=== PATIENT | female | born 1995 | race African-American/Black ===

== ENCOUNTER 2016-06-28 16:23 | Emergency (ER) | payer OTHER ==
[2016-06-28 16:53] VITALS: BP 128/74; PULSE 81; RESP 16; TEMP 99.7
--- NOTE | 2016-06-28 18:04 | ED ---
Skin/Abscess/FB HPI - General Chief complaint: Skin/Abscess/Foreign Body Stated complaint: Spider Bite Time Seen by Provider: 06/28/16 17:43 Source: patient, RN notes reviewed Mode of arrival: ambulatory Limitations: no limitations - History of Present Illness Initial comments: Patient is a 20-year-old female presents to the emergency room for evaluation. Patient states she thinks she has a spider bite under her right breast area. Patient states she killed the spider 2 days ago and noticed a small spider bite on her right breast today. Patient states she has been having increasing pain. Patient denies fevers or chills. Patient also states that she has a small lump in the posterior portion of her scalp on the right side. Patient states that causes pain to press over the area. Patient denies any drainage from the area. Patient denies history of abscesses or history of MRSA. Patient states that she is up to date on all of her immunizations. Patient denies any redness or streaking from the site under her breast. - Related Data Previous Rx's Medication Instructions Recorded Mupirocin 2% Oint [Bactroban 2% 1 applic TOPICAL TID 10 Days 06/28/16 Oint] Sulfamethox-Tmp 800-160Mg [Bactrim 2 each PO Q12HR #56 tab 06/28/16 Ds] Allergies Allergy/AdvReac Type Severity Reaction Status Date / Time No Known Allergies Allergy Verified 06/28/16 16:53 Review of Systems ROS Statement: Those systems with pertinent positive or pertinent negative responses have been documented in the HPI. ROS Other: All systems not noted in ROS Statement are negative. Past Medical History Past Medical History: Asthma History of Any Multi-Drug Resistant Organisms: None Reported Past Surgical History: No Surgical Hx Reported Past Psychological History: No Psychological Hx Reported Smoking Status: Current every day smoker Past Alcohol Use History: None Reported Past Drug Use History: None Reported General Exam - General Exam Comments Initial Comments: sitting in exam room, no acute distress. Limitations: no limitations General appearance: alert, in no apparent distress Head exam: Present: atraumatic, normocephalic, normal inspection Eye exam: Present: normal appearance ENT exam: Present: normal exam Neck exam: Present: normal inspection Respiratory exam: Present: normal lung sounds bilaterally. Absent: respiratory distress Cardiovascular Exam: Present: regular rate, normal rhythm, normal heart sounds Extremities exam: Present: normal inspection Back exam: Present: normal inspection Neurological exam: Present: alert, oriented X3, CN II-XII intact, normal gait Psychiatric exam: Present: normal affect, normal mood Skin exam: Present: other (small erythematous lesion under her right breast, mild surrounding erythema. No streaking noted. Pea size abscess noted on the base of the skull on the right side.) Course Vital Signs 06/28/16 16:49 Temperature 99.7 F H Pulse Rate 81 Respiratory 16 Rate Blood Pressure 128/74 O2 Sat by Pulse 100 Oximetry Procedures - Incision & Drainage Consent Obtained: verbal consent Site: scalp Needle Aspiration Performed?: Yes I&D Drainage Obtained: Pus Culture Obtained?: Yes Patient Tolerated Procedure: well, no complications Medical Decision Making - Medical Decision Making patient is a 20-year-old female presents emergency room for evaluation of possible insect bite under her right breast and abscess over her scalp. Scalp abscess was incised. Culture pending. No streaking or major surrounding erythema around insect bite. Patient was placed on double strength Bactrim advised to return for worsening symptoms. Patient states she understands her diagnosis discussed with her. Case discussed with Dr. Brown. Disposition Clinical Impression: Insect bite, Scalp abscess Disposition: HOME SELF-CARE Condition: Good Instructions: Insect Bite or Sting (ED), Abscess Incision and Drainage (ED), Abscess (ED) Additional Instructions: Take antibiotics as directed. Apply mupirocin ointment as directed. Keep area' s clean with antibacterial soap and water. Take Tylenol or Motrin as needed for pain. Please follow-up with primary care provider in 24-48 hours for reevaluation. If any new symptom arises or symptoms worsen, return to ER as soon as possible. Prescriptions: Sulfamethox-Tmp 800-160Mg [Bactrim Ds] 2 each PO Q12HR #56 tab Mupirocin 2% Oint [Bactroban 2% Oint] 1 applic TOPICAL TID 10 Days Referrals: Nonstaff,Physician [Primary Care Provider] - 1-2 days Time of Disposition: 18:05
== END 2016-06-28 18:20 | disposition home or self-care (01) ==
LOC: EC 16:23
DX: L02.811 Cutaneous abscess of head [any part, except face] (principal); L53.9 Erythematous condition, unspecified; F17.200 Nicotine dependence, unspecified, uncomplicated
CPT/HCPCS: 10160; 87070; 87077; 87186; 87205; 99283

== ENCOUNTER 2016-07-01 18:31 | Emergency (ER) | payer SELFPAY ==
[2016-07-01] MEDS ORDERED: ACETAMINOPHEN TAB 500 MG TAB PO STA (19:52)
[2016-07-01] MEDS ORDERED: SODIUM CHLORIDE 0.9% 1,000 ML IV ONE (19:52)
[2016-07-01] MEDS ORDERED: IBUPROFEN 800 MG TAB PO STA (19:52)
[2016-07-01 20:29] VITALS: RESP 18
[2016-07-01 20:40] LABS: Basophils % (A) 0 %; CHCM 32.5; Eosinophils # (A) 0.3 k/uL (0-0.7); Eosinophils % (A) 2 %; HCT 42.8 % (34.0-46.0); HDW 2.36; HGB 14.1 gm/dL (11.4-16.0); Luc # (Auto) 0.23; Luc % (Auto) 2; Lymphocytes % (A) 14 %; MCH 27.4 pg (25.0-35.0); MCHC 32.9 g/dL (31.0-37.0); MCV 83.5 fL (80.0-100.0); Mean Platelet Volume 7.2; Monocytes # (A) 0.7 k/uL (0-1.0); Monocytes % (A) 5 %; Neutrophils % (A) 77 %; RBC 5.13 m/uL (3.80-5.40); RDW 13.3 % (11.5-15.5); WBC 14.2 k/uL (4.0-11.0); WBC (Perox) 13.72
[2016-07-01 20:50] LABS: ALT 23 U/L (9-52); AST 21 U/L (14-36); Alkaline Phosphatase 115 U/L (38-126); Anion Gap 14 mmol/L; Blood Urea Nitrogen 9 mg/dL (7-17); Calcium 10.1 mg/dL (8.4-10.2); Carbon Dioxide 21 mmol/L (22-30); Chloride 104 mmol/L (98-107); Glucose 94 mg/dL (74-99); Non-African American GFR(MDRD) >60 (>60 ml/min/1.73 sqM); Potassium 3.2 mmol/L (3.5-5.1); Sodium 139 mmol/L (137-145); Total Bilirubin 0.5 mg/dL (0.2-1.3); Total Protein 7.9 g/dL (6.3-8.2)
--- NOTE | 2016-07-01 20:59 | ED ---
Skin/Abscess/FB HPI - General Chief complaint: Skin/Abscess/Foreign Body Stated complaint: Neck Wound Time Seen by Provider: 07/01/16 19:51 Source: patient, RN notes reviewed, old records reviewed Mode of arrival: ambulatory Limitations: no limitations - History of Present Illness Initial comments: This is a 20-year-old female for a reevaluation after she had a abscess drained from the right posterior neck. Patient reports that she was seen and a culture was obtained. She reports that she's been placed on Biaxin taking them regularly. She rests emergency department today with a fever. Denies any recent Motrin or Tylenol use. Patient states that it is not getting any better and has continued to spread. Patient also reports that she has a abscess underneath the right breast. She reports that that was healing well. Patient denies a safety a past medical history. - Related Data Home Medications Medication Instructions Recorded Confirmed Ibuprofen 200 - 400 mg PO Q6H PRN 07/01/16 07/01/16 Sulfamethox-Tmp 800-160Mg [Bactrim 2 tab PO Q12HR 07/01/16 07/01/16 Ds] Previous Rx's Medication Instructions Recorded Mupirocin 2% Oint [Bactroban 2% 1 applic TOPICAL TID 10 Days 06/28/16 Oint] Allergies Allergy/AdvReac Type Severity Reaction Status Date / Time No Known Allergies Allergy Verified 07/01/16 20:14 Review of Systems ROS Statement: Those systems with pertinent positive or pertinent negative responses have been documented in the HPI. ROS Other: All systems not noted in ROS Statement are negative. Past Medical History Past Medical History: Asthma History of Any Multi-Drug Resistant Organisms: None Reported Past Surgical History: No Surgical Hx Reported Past Psychological History: No Psychological Hx Reported Smoking Status: Current every day smoker Past Alcohol Use History: None Reported Past Drug Use History: None Reported General Exam - General Exam Comments Initial Comments: Physical 20-year-old female. No acute distress. Limitations: no limitations General appearance: alert, in no apparent distress Head exam: Present: atraumatic, normocephalic, normal inspection, other ( Patient has evidence of a firm abscess/cyst over the right posterior neck into the scalp.) Eye exam: Present: normal appearance, PERRL, EOMI. Absent: scleral icterus, conjunctival injection, periorbital swelling ENT exam: Present: normal exam, mucous membranes moist Neck exam: Present: normal inspection. Absent: tenderness, meningismus, lymphadenopathy Respiratory exam: Present: normal lung sounds bilaterally. Absent: respiratory distress, wheezes, rales, rhonchi, stridor Cardiovascular Exam: Present: regular rate, normal rhythm, normal heart sounds. Absent: systolic murmur, diastolic murmur, rubs, gallop, clicks GI/Abdominal exam: Present: soft, normal bowel sounds. Absent: distended, tenderness, guarding, rebound, rigid Extremities exam: Present: normal inspection, full ROM, normal capillary refill. Absent: tenderness, pedal edema, joint swelling, calf tenderness Back exam: Present: normal inspection Neurological exam: Present: alert, oriented X3, CN II-XII intact Psychiatric exam: Present: normal affect, normal mood Skin exam: Present: warm, dry, intact, normal color. Absent: rash Course Vital Signs 07/01/16 07/01/16 07/01/16 18:34 20:29 21:55 Temperature 100.1 F H 98.9 F Pulse Rate 98 78 76 Respiratory 20 18 18 Rate Blood Pressure 158/77 123/63 111/80 O2 Sat by Pulse 98 97 98 Oximetry 07/01/16 22:57 Temperature 98.7 F Pulse Rate 69 Respiratory 18 Rate Blood Pressure 120/80 O2 Sat by Pulse 98 Oximetry Procedures - Incision & Drainage Consent Obtained: verbal consent Indication: abscess Site: scalp Size (cm): 5 Anesthetic Used: benzocaine 0.25% Amount (mLs): 3 I&D Cleaning Method: Betadine Sterile Field Used?: Yes Scalpel Used: #11 I&D Drainage Obtained: Pus, Blood Culture Obtained?: Yes Patient Tolerated Procedure: well, no complications Medical Decision Making - Medical Decision Making This is a 20-year-old female for a reevaluation after she had a abscess drained from the right posterior neck. Patient reports that she was seen and a culture was obtained. She reports that she's been placed on Bactrim taking them regularly. She rests emergency department today with a fever. Denies any recent Motrin or Tylenol use. Patient states that it is not getting any better and has continued to spread. Patient also reports that she has a abscess underneath the right breast. She reports that that was healing well. Patient denies a safety a past medical history. Patient received IV fluids and lab work obtained. Evidence of leukocytosis of 14.0. Ultrasound of the area was obtained and reveals a large mass of the area. No significant area for fluid drainage. Discussed this case with Dr. Dhillon. He was able to squeeze a significant amount of pus from the area. I went back and incised and drained the area and significant amount of pus and fluid came out. Patient reports significant relief of the pain afterward. Given the likely remove most of the abscess will continue to have the patient treated outpatient only with double strength Bactrim. Discussed close follow-up with a primary care provider after 2 days more of the antibiotic. Discussed that patient may need to return if the area continues to grow and does not start to heal properly. Patient agrees to treatment plan will comply. Return parameters were discussed. - Lab Data Result diagrams: 07/01/16 20:20 07/01/16 20:20 Lab Results 07/01/16 07/01/16 07/01/16 Range/Units 20:20 20:20 20:20 WBC 14.2 H (4.0-11.0) k/uL RBC 5.13 (3.80-5.40) m/uL Hgb 14.1 (11.4-16.0) gm/dL Hct 42.8 (34.0-46.0) % MCV 83.5 (80.0-100.0) fL MCH 27.4 (25.0-35.0) pg MCHC 32.9 (31.0-37.0) g/dL RDW 13.3 (11.5-15.5) % Plt Count 316 (150-450) k/uL Neutrophils % 77 % Lymphocytes % 14 % Monocytes % 5 % Eosinophils % 2 % Basophils % 0 % Neutrophils # 11.0 H (1.3-7.7) k/uL Lymphocytes # 2.0 (1.0-4.8) k/uL Monocytes # 0.7 (0-1.0) k/uL Eosinophils # 0.3 (0-0.7) k/uL Basophils # 0.0 (0-0.2) k/uL Sodium 139 (137-145) mmol/L Potassium 3.2 L (3.5-5.1) mmol/L Chloride 104 (98-107) mmol/L Carbon Dioxide 21 L (22-30) mmol/L Anion Gap 14 mmol/L BUN 9 (7-17) mg/dL Creatinine 1.04 (0.52-1.04) mg/dL Est GFR (MDRD) Af Amer >60 (>60 ml/min/1.73 sqM) Est GFR (MDRD) Non-Af >60 (>60 ml/min/1.73 sqM) Glucose 94 (74-99) mg/dL Plasma Lactic Acid Rhett 1.4 (0.7-2.0) mmol/L Calcium 10.1 (8.4-10.2) mg/dL Total Bilirubin 0.5 (0.2-1.3) mg/dL AST 21 (14-36) U/L ALT 23 (9-52) U/L Alkaline Phosphatase 115 (38-126) U/L Total Protein 7.9 (6.3-8.2) g/dL Albumin 4.8 (3.5-5.0) g/dL - Radiology Data Radiology results: report reviewed At the areas patient's palpable lump there is a solid-appearing heterogeneous area visualized measuring 6.4 x 2.6 x 4.0 cm. There is some bags vascularity within the area. No definite fluid collection strain will. This could be an enlarged lymph node. Disposition Clinical Impression: Scalp abscess Disposition: HOME SELF-CARE Condition: Good Instructions: Abscess (ED) Additional Instructions: Patient advised to be reevaluated by primary care physician and return to emergency department if it gets worse by Wednesday. Return to the emergency department if any alarming signs or symptoms occur. Patient should take Motrin Tylenol for pain. Completely antibiotic prescription. Referrals: Charlene Mejía MD [STAFF PHYSICIAN] - 1-2 days Time of Disposition: 22:41
--- NOTE | 2016-07-01 21:39 | US ---
EXAMINATION TYPE: US thyroid st tissue head/neck DATE OF EXAM: 07/01/2016 9:30 PM COMPARISON: NONE CLINICAL HISTORY: Pain. Palpable lump located at the hairline posterior right neck At the area of the patient's palpable lump, there is a solid appearing heterogeneous area visualized measuring 6.4 x 2.6 x 4.0 cm. There is some vascularity within this area IMPRESSION: In the area of concern there is demonstration of is predominantly solid mass. Sonographi c features are nonspecific. No definite drainable fluid collection is seen. This could be a markedly enlarged lymph node.
[2016-07-01 22:58] VITALS: BP 120/80; PULSE 69; TEMP 98.7
== END 2016-07-01 22:58 | disposition home or self-care (01) ==
LOC: EC 18:31
DX: L02.811 Cutaneous abscess of head [any part, except face] (principal); F17.200 Nicotine dependence, unspecified, uncomplicated
CPT/HCPCS: 36415; 76536; 80053; 83605; 85025; 87040; 87070; 87077; 87186; 87205; 96360; 96361; 99284